=== PATIENT | female | born 1945 | race Caucasian/White ===

== ENCOUNTER 2025-04-26 11:46 | Emergency (ER) | payer MEDICARE ==
[~2025-04-26] VITALS: Ht 167.6 cm; Wt 73.0 kg
[~2025-04-26 11:46] MED LIST: ALEN70TA79 PO; ALLO300T2 PO; AMLO10TA80 PO; CETI10TA6 PO; FURO40TA5 PO; LEVO50TA8 PO; LOSA50TA41 PO
[2025-04-26 11:47] VITALS: O2SAT 100
[2025-04-26 12:58] LABS: BASOPHILS % 0.2 % (0.0-2.0); EOSINOPHILS % 12.8 % (0.0-5.0); HEMATOCRIT. 29.2 % (36.0-48.0); HEMOGLOBIN. 9.7 g/dL (12.0-16.0); LYMPHOCYTES % 8.0 % (20.0-50.0); MEAN PLATELET VOLUME 7.5 fl (7.4-10.4); MONOCYTES % 9.5 % (2.0-8.0); NEUTROPHILS % 69.5 % (40.0-76.0); PLATELET 343 x1000/uL (130-400); RED BLOOD CELL COUNT 3.20 mill/uL (4.2-5.4); RED CELL DISTRIBUTION WIDTH 16.3 % (11.6-14.6)
[2025-04-26 13:15] LABS: UREA NITROGEN BLOOD 74 mg/dL (9-23)
[2025-04-26] MEDS ORDERED: LEVETIRACETAM 500MG PREMIX 100 ML IV NR (13:15)
[2025-04-26 13:25] LABS: CREATININE 3.7 mg/dL (0.6-1.0)
[2025-04-26 13:26] LABS: TROPONIN I HIGH SENSITIVITY 40 ng/L (3.0-34)
[2025-04-26 14:44] VITALS: BP 115/43; PULSE 86; RESP 20; TEMP 36.8; O2SAT 98
== END 2025-04-26 14:30 | disposition short-term general hospital (02) ==
LOC: ER 12:59
DX: S06.5XAA Traumatic subdural hemorrhage with loss of consciousness status unknown, initial encounter (principal); I10 Essential (primary) hypertension; Z60.2 Problems related to living alone; Z79.890 Hormone replacement therapy; Z79.899 Other long term (current) drug therapy; W06.XXXA Fall from bed, initial encounter; Y93.89 Activity, other specified; Y92.89 Other specified places as the place of occurrence of the external cause; Y99.8 Other external cause status
CPT/HCPCS: 36415; 71045; 72170; 80048; 84484; 85025; 93005; 99291; A4606; J1953